=== PATIENT | male | born 1980 | race Caucasian/White ===

== ENCOUNTER 2017-09-16 11:18 | Emergency (ER) | payer OTHER ==
[~2017-09-16] VITALS: Ht 175.3 cm; Wt 84.5 kg
[2017-09-16 14:54] VITALS: BP 138/72
== END 2017-09-16 14:55 | disposition home or self-care (01) ==
LOC: EME 11:18
DX: S09.90XA Unspecified injury of head, initial encounter (principal); V69.3XXA Occupant (driver) (passenger) of heavy transport vehicle injured in unspecified nontraffic accident, initial encounter; Z87.820 Personal history of traumatic brain injury; Z87.81 Personal history of (healed) traumatic fracture; G89.29 Other chronic pain; F17.200 Nicotine dependence, unspecified, uncomplicated
CPT/HCPCS: 70450; 99281; 99283